=== PATIENT | female | born 1960 | race Two or more races ===

== ENCOUNTER 2021-01-01 06:00 | Day surgery (SDC) | payer OTHER ==
[~2021-01-01 06:00] MED LIST: HYZAAR 50-12.51 EACH PO
== END 2021-01-01 12:30 | disposition home or self-care (01) ==
LOC: CIR.AMB 06:00
PROVIDERS: ATTEND Colon & Rectal Surgery
DX: K80.10 Calculus of gallbladder with chronic cholecystitis without obstruction (principal); Z20.822 Contact with and (suspected) exposure to COVID-19